=== PATIENT | female | born 1980 | race Hispanic/Latino ===

== ENCOUNTER 2019-01-07 19:30 | Emergency (ER) | payer SELFPAY ==
--- NOTE | 2019-01-07 20:20 | RAD ---
XR Chest 1 View Portable HISTORY: Cough COMPARISON: None. FINDINGS: Heart size and mediastinum are within normal limits considering portable technique. The antelmo gs appear clear of infiltrates. No significant bony findings. IMPRESSION: No active intrathoracic disease.
== END 2019-01-07 20:58 | disposition home or self-care (01) ==
LOC: ERS 19:30
DX: J06.9 Acute upper respiratory infection, unspecified (principal); E11.9 Type 2 diabetes mellitus without complications; Z79.84 Long term (current) use of oral hypoglycemic drugs
CPT/HCPCS: 71045